=== PATIENT | male | born 2000 | race Caucasian/White ===

== ENCOUNTER 2023-08-16 14:06 | Emergency (ER) | payer MEDICAID ==
[~2023-08-16] VITALS: Ht 167.6 cm; Wt 68.0 kg
[2023-08-16 14:51] VITALS: BP 121/71; PULSE 86; RESP 18; TEMP 97; O2SAT 98
[2023-08-16] MEDS ORDERED: BACITRACIN OINT 500 UNITS/GM PKT TP ONE (17:15)
[2023-08-16] MEDS ORDERED: LIDOCAINE MPF 1% 10 MG/ML VIAL INJ ONE (17:15)
[2023-08-16 18:43] VITALS: BP 132/86; PULSE 89; RESP 15; TEMP 97; O2SAT 95
== END 2023-08-16 18:43 | disposition home or self-care (01) ==
LOC: MED 14:06
DX: S01.511A Laceration without foreign body of lip, initial encounter (principal); S20.212A Contusion of left front wall of thorax, initial encounter; W01.198A Fall on same level from slipping, tripping and stumbling with subsequent striking against other object, initial encounter; Y92.89 Other specified places as the place of occurrence of the external cause; Y93.89 Activity, other specified; Y99.8 Other external cause status
CPT/HCPCS: 12011; 71045; 99283; J2001; Q0092

== ENCOUNTER 2023-08-18 08:34 | Emergency (ER) | payer MEDICAID ==
[~2023-08-18] VITALS: Ht 167.6 cm; Wt 59.0 kg
[2023-08-18 09:19] VITALS: BP 124/78; PULSE 89; RESP 18; TEMP 97; O2SAT 98
== END 2023-08-18 09:39 | disposition home or self-care (01) ==
LOC: MED 08:34
DX: S01.511D Laceration without foreign body of lip, subsequent encounter (principal); Z48.00 Encounter for change or removal of nonsurgical wound dressing; W01.198D Fall on same level from slipping, tripping and stumbling with subsequent striking against other object, subsequent encounter
CPT/HCPCS: 99281

== ENCOUNTER 2023-08-24 08:53 | Emergency (ER) | payer MEDICAID ==
[~2023-08-24] VITALS: Ht 160 cm; Wt 65.8 kg
[2023-08-24 09:14] VITALS: BP 110/60; PULSE 68; RESP 18; TEMP 98.2; O2SAT 99
== END 2023-08-24 09:38 | disposition home or self-care (01) ==
LOC: MED 08:53
DX: S01.511D Laceration without foreign body of lip, subsequent encounter (principal); Z48.02 Encounter for removal of sutures; X58.XXXD Exposure to other specified factors, subsequent encounter
CPT/HCPCS: 99281